=== PATIENT | male | born 2005 | race Caucasian/White ===

== ENCOUNTER 2023-09-12 00:37 | Emergency (ER) | payer SELFPAY ==
[2023-09-12] MEDS: hydrOXYzine HCl 10 MG Tab PO ONE (01:21)
== END 2023-09-12 02:55 | disposition home or self-care (01) ==
LOC: JD.ED 00:37
DX: R07.89 Other chest pain (principal)
CPT/HCPCS: 71046; 93005; 99285; A9270; 93010; 99283